=== PATIENT | female | born 1990 | race Caucasian/White ===

== ENCOUNTER → 2023-05-20 11:32 | Outpatient (CLI) | payer OTHER, SELFPAY ==
--- NOTE | ~2023-05-20 | XR_ITS ---
XR sternoclavicular joint BI DATE: 05/20/2023 12:11 INDICATION: Right sternoclavicular joint pain, swelling TECHNIQUE: AP and oblique views of the sternoclavicular joints COMPARISON: None FINDINGS: There is normal alignment at the sternoclavicular joints. No fracture or dislocation is det ected. IMPRESSION: Negative Reviewed, dictated and finalized at [facility]. Reviewed, dictated and finalized at location [facility]. IMPRESSION: Negative
== END ==
PROVIDERS: PCP Family Medicine; Visit Provider Family Medicine
DX: M25.511 Pain in right shoulder (principal)
CPT/HCPCS: 71130

== ENCOUNTER 2023-05-29 10:47 | Outpatient (CLI) | payer OTHER, SELFPAY ==
[2023-05-29 12:03] LABS: Basophils Absolute Auto 0.1 K/mm3 (0.0-0.1); Basophils Percent Auto 0.6 % (0.2-1.2); Eosinophils Absolute Auto 0.1 K/mm3 (0-0.3); Hematocrit 43.8 % (37.0-47.0); Hemoglobin 13.9 g/dL (12.0-15.0); Immature Granulocyte Absolute 0.04 K/mm3 (0.00-0.031); Immature Granulocyte Percent A 0.5 % (0-0.5); Lymphocytes Absolute Auto 2.13 K/mm3 (0.9-3.2); Lymphocytes Percent Auto 24.5 % (18.3-44.2); Mean Corpuscular HGB Conc 31.7 g/dl (32-36); Mean Corpuscular Hemoglobin 28.5 pg (26-34); Mean Corpuscular Volume 89.8 fl (80-100); Monocytes Absolute Auto 0.5 K/mm3 (0.1-0.6); Monocytes Percent Auto 5.4 % (2.6-8.5); Neutrophils Absolute Auto 5.9 K/mm3 (1.3-6.7); Platelet Count Result 332 k/mm3 (150-375); Red Blood Count 4.88 M/mm3 (4.2-5.4); Red Cell Distribution Width 12.5 % (11.5-14.5); White Blood Count 8.7 K/mm3 (4.5-10.0)
[2023-05-29 12:32] LABS: Rheumatoid Factor < 12.0 IU/ML (<12)
[2023-05-29 12:42] LABS: Iron 121 ug/dL (37-170)
[2023-05-29 12:59] LABS: Percent Iron Saturation 26 % (20-50)
[2023-05-29 13:26] LABS: Erythrocyte Sedimentation Rate 13 mm/hr (0-20)
[2023-06-03 19:35] LABS: Immunoglobulin A 188 mg/dL (47-310); TTG IGA AB <1.0 U/mL (<15.0)
== END 2023-05-29 10:48 | disposition home or self-care (01) ==
LOC: ANHGOSHLAB 10:49
PROVIDERS: PCP Family Medicine; Visit Provider Family Medicine
DX: R19.7 Diarrhea, unspecified (principal); Z79.899 Other long term (current) drug therapy; M25.812 Other specified joint disorders, left shoulder; E61.1 Iron deficiency
CPT/HCPCS: 36415; 82728; 82784; 83540; 83550; 85025; 85652; 86038; 86364; 86430

== ENCOUNTER 2024-10-21 12:14 | Outpatient (CLI) | payer OTHER, SELFPAY ==
--- NOTE | ~2024-10-21 | XR_ITS ---
EXAMINATION: XR chest 2V 10/21/2024 12:24 INDICATION: Chest pain PROCEDURE: 2 view chest COMPARISON: 12/02/2018 FINDINGS: The lungs are clear. The cardiomediastinal silhouette is within normal limits. There are no pleural effusions. There is no pneumothorax suspected. IMPRESSION: 1: NO ACUTE CARDIOPULMONARY DISEASE. Reviewed, dictated and finalized at location [facility].
== END 2024-10-21 12:15 | disposition home or self-care (01) ==
PROVIDERS: PCP Family Medicine; Visit Provider Family Medicine
DX: R07.9 Chest pain, unspecified (principal)
CPT/HCPCS: 71046

== ENCOUNTER 2024-11-03 08:25 | Outpatient (CLI) | payer OTHER, SELFPAY ==
--- NOTE | ~2024-11-03 | CT_ITS ---
CT Scan of the Chest without Contrast: Clinical Indication: Mediastinal pathology Technique: Contiguous sections were acquired throughout the chest without intravenous contrast. Dose reduction technique was used on this scan by utilizing automated exposure control and iterative recon struction technique. The dose-length product (DLP) was 220.97 mGy-cm. Findings: There is no evidence of any significant mediastinal, hilar or axillary lymphadenopathy. The mediastin al soft tissues appear normal. There is no evidence of pleural or pericardial effusion. The lungs are clear. No pulmonary nodules or infiltrates are noted. Images through the upper abdomen reveal no abnormalities. Impression: No significant abnormalities seen. Reviewed, dictated and finalized at location . Impression: No significant abnormalities seen.
== END 2024-11-03 08:26 | disposition home or self-care (01) ==
LOC: MICIMG 08:26
PROVIDERS: PCP Family Medicine; Visit Provider Family Medicine
DX: R07.89 Other chest pain (principal)
CPT/HCPCS: 71250